=== PATIENT | female | born 1930 | race Caucasian/White ===

== ENCOUNTER 2017-01-07 15:50 | Inpatient (IN) ==
--- NOTE | 2017-01-07 16:41 | Diag Imaging Result Doc PS360 ---
FEMUR MIN 2 VIEWS RIGHT - 01/07/2017 INDICATION: FALL WITH DEFORMITY TECHNIQUE: Four views COMPARISON: None FINDINGS: Bones are intact and normally aligned. Joint spaces and soft tissues are clear. IMPRESSION: Negative exam. Electronically signed by Luis M Tee 01/07/2017 4:38 PM
--- NOTE | 2017-01-07 16:42 | Diag Imaging Result Doc PS360 ---
HUMERUS-RIGHT - 01/07/2017 INDICATION: PAIN S/P FALL TECHNIQUE: Three views COMPARISON: None FINDINGS: Bones are intact and normally aligned. Joint spaces and soft tissues are clear. IMPRESSION: Negative exam. Electronically signed by Luis M Tee 01/07/2017 4:39 PM
[2017-01-07 17:10] LABS: MANUAL DIFF NEEDED? NO
[2017-01-07 17:12] LABS: BASO% 0.3 % (0.0-0.8); EOS# 0.06 X1000 (0.0-0.7); EOS% 0.9 % (0.0-10.0); HEMATOCRIT 37.6 % (37.0-47.0); HEMOGLOBIN 13.2 g/dL (12.0-16.0); IMM GRAN# 0.03 X1000 (0.0-0.04); IMM GRAN% 0.4 % (0.0-0.5); LYMPH# 0.78 X1000 (1.2-3.4); LYMPH% 11.4 % (20.5-51.1); MCH 32.2 PG (27-31); MCHC 35.1 g/dL (33-37); MCV 91.7 FL (81-99); MONO# 0.61 X1000 (0.11-0.59); MONO% 8.9 % (1.7-9.3); MPV 9.4 FL (7.4-10.4); NEUT% 78.1 % (42.2-75.2); PLT 192 X1000 (130-400)
[2017-01-07 17:22] LABS: INR 1.09; PROTIME 11.5 Seconds (9.2-11.7); PTT 34.1 Seconds (22.0-36.0)
[2017-01-07 17:38] LABS: AGAP 12; ALBUMIN 3.8 g/dL (3.5-5.0); ALKALINE PHOSPHATASE 34 U/L (32-104); BUN 16 mg/dL (8-22); CALCIUM 8.8 mg/dL (8.8-10.2); CHLORIDE 96 mmol/L (98-107); CK PROFILE 74 U/L (24-173); COSMO 260; GOT 15 U/L (10-30); GPT 10 U/L (10-36); MAGNESIUM 1.9 mg/dL (1.5-2.7); SODIUM 129 mmol/L (136-145); TCO2 21 mmol/L (25-35); TOTAL BILIRUBIN 0.77 mg/dL (0.20-1.00); TOTAL PROTEIN 6.5 g/dL (6.3-8.3)
--- NOTE | 2017-01-07 17:45 | PROVIDER DOCUMENTATION ---
This chart was entered by Audelia Martinez Scribe, acting as scribe for Phyllis Blackmon MD. HPI-Musculoskeletal Pain/Inj - GENERAL Source: patient - HX OF PRESENT ILLNESS-MUSKULOSKELTAL Severity in ED: moderate Onset/Duration: abrupt, just prior to arrival Timing: still present Modifying Factors: worse with: palpation Any recent injury?: Yes (Fall, R leg visible abnormality) Locality of Occurance: Home - FALL INJURY Location of Pain/Injury: reports: lower extremity (R femur) Reason for Fall: reports: slipped (Pt was pulling trash can back to house while wearing 2-inch heels.) Symptoms prior to fall:: reports: none Loss of Consciousness: no loss of consciousness Injury Associated Symptoms: reports: unable to bear weight, trouble walking - LOWER EXTREMITY PAIN/INJURY Lower Extremities Pain: leg: right (Pain and hematoma, anterior aspect of upper leg) - UPPER EXTREMITY PAIN/INJURY Extremities Pain Location: forearm: right (superficial abrasions), wrist: right (superficial abrasions), hand: right (superficial abrasions) Context / Method of Injury: reports: fell Associated Symptoms: reports: denies symptoms <Phyllis Blackmon - Last Filed: 01/07/17 17:55> - GENERAL Source: patient <IbrahimaFacundo - Last Filed: 01/07/17 19:59> - GENERAL Chief Complaint: Fall Stated Complaint: FALL DEFORMITY TO RIGHT FEMUR Time Seen by Provider: 01/07/17 16:16 - HX OF PRESENT ILLNESS-MUSKULOSKELTAL Nature of Presenting Problem: 86 yo WF is brought to ED by EMS after falling while trying to get her trash can back to her house. Pt's cc is R leg pain, and she presents with a visible deformity. Pt reports that she lives alone. Pt denies any other symptoms. Pt is currently on Plavix. Upon arrival to ED, pt is a&o x 3 and in no apparent distress. (Audelia Martinez) 86 yo WF is brought to ED by EMS after falling while trying to get her trash can back to her house. Pt's cc is R leg pain, and she presents with a visible deformity. Pt reports that she lives alone. Pt denies any other symptoms. Pt is currently on Plavix. Upon arrival to ED, pt is a&o x 3 and in no apparent distress. (Phyllis Blackmon) Review of Systems - Adult - REVIEW OF SYSTEMS - ADULT Constitutional: reports: no symptoms reported. denies: chills, fever Eyes: reports: no symptoms reported. denies: discharge, decreased vision Ears, Nose, Mouth & Throat: reports: no symptoms reported. denies: hearing loss , loose teeth Cardiovascular: reports: no symptoms reported. denies: chest pain, palpitations Respiratory: reports: no symptoms reported. denies: cough, hemoptysis Gastrointestinal: reports: no symptoms reported. denies: abdominal pain Genitourinary: reports: no symptoms reported. denies: dysuria, flank pain Musculoskeletal: reports: bone pain (R femur), muscle aches (R upper leg) Integumentary: reports: other (bruise anterior aspect R upper leg) Neurological: reports: no symptoms reported. denies: headache/migraines, loss of balance Psychiatric: reports: no symptoms reported. denies: anxiety, depression Endocrine: reports: no symptoms reported. denies: cold intolerance, heat intolerance Hematologic/Lymphatic: reports: no symptoms reported. denies: easy bruising, prolonged bleeding Allergic/Immunologic: reports: no symptoms reported. denies: allergic reactions , eczema All Other Systems: Reviewed and Negative <Phyllis Blackmon - Last Filed: 01/07/17 17:55> - REVIEW OF SYSTEMS - ADULT Constitutional: reports: no symptoms reported All Other Systems: Reviewed and Negative <Facundo Alexandra - Last Filed: 01/07/17 19:59> Past History - Adult - PAST MEDICAL HISTORY-ADULT Review of Records: reports: Old Records Reviewed, Nursing Assessment Review, Medications Reviewed Cardiovascular: reports: arrhythmia, HTN, hyperlipidemia Obstetrical/Gynecological: reports: other (breast ca) Endocrine/Immune: reports: thyroid disorder Other Conditions: reports: other cancer (breast) - PRIOR SURGERIES/PROCEDURES Surgical/Procedure History: reports: appendectomy, cholecystectomy, hysterectomy , tonsillectomy - IMMUNIZATION STATUS Childhood Immunizations: See Nurse Assessment Flu Vaccine: See Nurse Assessment <Phyllis Blackmon - Last Filed: 01/07/17 17:55> - PAST MEDICAL HISTORY-ADULT Review of Records: reports: Old Records Reviewed, Nursing Assessment Review, Medications Reviewed <Facundo Alexandra - Last Filed: 01/07/17 19:59> Physical Exam-Injury Related - Physical Exam-Injury Related Initial Vital Signs Reviewed: Yes General Appearance: appears well, alert, no apparent distress Eyes: PERRL/EOMI, pink conjunctivae Head, Ears, Nose, Mouth & Throat: normocephalic/atraumatic, moist mucous membranes Neck: non-tender, full range of motion, supple Respiratory: chest non-tender, lungs clear, normal breath sounds Cardiovascular: normal peripheral pulses, regular rate, rhythm, no edema Abdominal Exam: normal bowel sounds, non tender, soft Back Exam: normal inspection Extremity: deformity (R upper leg), tenderness (R upper leg). negative: pulse deficit (distal pulse on R leg is fine) Integumentary: other (large hematoma, anterior portion of R upper leg) Neurologic: grossly normal, no motor/sensory deficits Psych/Mental Status: normal mood/affect, normal thought content, normal thought process, oriented x 3 - Glascow Coma Score Best Eye Response ([place]): (4) open spontaneously Best Verbal Response ([place]): (5) oriented Best Motor Response ([place]): (6) obeys commands Omar Total: 15 <Phyllis Blackmon X - Last Filed: 01/07/17 17:55> - Physical Exam-Injury Related Initial Vital Signs Reviewed: Yes General Appearance: appears well, alert, no apparent distress <Facundo Alexandra - Last Filed: 01/07/17 19:59> Progress - PLAN OF CARE/RESULTS Result Diagrams: 01/07/17 17:00 01/07/17 17:00 - EKG 1 EKG Interpretation (*Must complete 3 of following elements*): Abnormal Rate: 80 Rhythm: NSR [place]: left QRS: normal PA Interval: normal ST Wave: non-specific ST changes - XRAY 1 XRAY: Right XRAY Study: Humerus Impression: Normal XRAY Interpretation: No acute injury (per Nay, radiology) 2 XRAY: Right XRAY Study: Femur Impression: Normal XRAY Interpretation: No acute injury (per Nay, radiology) - CHANGE OF SHIFT REPORT (ED Provider) Report Given and Care Transferred to:: Dr. Alexandra Time of Transfer: 18:00 Items Pending: Ultrasound Results, Other (Dispo) <Phyllis Blackmon X - Last Filed: 01/07/17 17:55> - PLAN OF CARE/RESULTS Result Diagrams: 01/07/17 17:00 01/07/17 17:00 - ULTRASOUND (By Radiology) 1 US Study: Lower Ext Impression: Abnormal US Results: hematoma, no vascular obstruction, no DVT - CONSULTS/PCP/HOSPITALIST Notification #1 *Consult/PCP/Hospitalist*: Dr. Moreland (superintendent transmission) Time Discussed: 19:45 Reason/Comments: no acute cardiogy intervention at this time,request cxr,abg Consult Disposition: Admit (Discussed elevated troponin. Dr. Dacosta does not recommend any acute cardiology intervention and no blood thinners with concurrent right thigh hematoma) <Facundo Alexandra - Last Filed: 01/07/17 19:59> - PLAN OF CARE/RESULTS Progress/Plan/Lab Results: Vital Signs - 8 hr 01/07/17 16:05 01/07/17 16:32 01/07/17 17:33 Temperature 97.9 F Pulse Rate 82 83 78 Respiratory Rate 18 Blood Pressure 133/78 133/78 133/78 O2 Sat by Pulse Oximetry 98 96 94 L 01/07/17 18:50 01/07/17 19:46 Temperature Pulse Rate 80 122 H Respiratory Rate 16 Blood Pressure 133/78 133/78 O2 Sat by Pulse Oximetry 95 95 Laboratory Results - last 24 hr 01/07/17 01/07/17 01/07/17 17:00 17:00 17:00 WBC 6.82 RBC 4.10 L Hgb 13.2 Hct 37.6 MCV 91.7 MCH 32.2 H MCHC 35.1 RDW Std Deviation 13.0 Plt Count 192 MPV 9.4 Immature Gran % (Auto) 0.4 Neut % (Auto) 78.1 H Lymph % (Auto) 11.4 L [place] % (Auto) 8.9 Eos % (Auto) 0.9 Baso % (Auto) 0.3 Immature Gran # (Auto) 0.03 Neut # (Auto) 5.32 Lymph # (Auto) 0.78 L [place] # (Auto) 0.61 H Eos # (Auto) 0.06 Baso # (Auto) 0.02 PT INR PTT (Actin FS) Sodium 129 L Potassium 4.0 Chloride 96 L Carbon Dioxide 21 L Anion Gap 12 BUN 16 Creatinine 0.5 Estimated GFR/1.73 m2 > 60 BUN/Creatinine Ratio 32 Glucose 97 Calculated Osmolality 260 Calcium 8.8 Magnesium 1.9 Total Bilirubin 0.77 AST 15 ALT 10 Alkaline Phosphatase 34 Creatine Kinase 74 Troponin T Ytx-S-Ljcbthggzaw Pept 259 Total Protein 6.5 Albumin 3.8 Globulin 2.7 Albumin/Globulin Ratio 1.4 01/07/17 01/07/17 01/07/17 17:00 17:00 19:00 WBC RBC Hgb Hct MCV MCH MCHC RDW Std Deviation Plt Count MPV Immature Gran % (Auto) Neut % (Auto) Lymph % (Auto) [place] % (Auto) Eos % (Auto) Baso % (Auto) Immature Gran # (Auto) Neut # (Auto) Lymph # (Auto) [place] # (Auto) Eos # (Auto) Baso # (Auto) PT 11.5 INR 1.09 PTT (Actin FS) 34.1 Sodium Potassium Chloride Carbon Dioxide Anion Gap BUN Creatinine Estimated GFR/1.73 m2 BUN/Creatinine Ratio Glucose Calculated Osmolality Calcium Magnesium Total Bilirubin AST ALT Alkaline Phosphatase Creatine Kinase Troponin T 0.330 H* 0.349 H* Byp-S-Murefxspkrn Pept Total Protein Albumin Globulin Albumin/Globulin Ratio Orders Category Date Time Status Cardiac Monitoring DIRECTED Care 01/07/17 16:41 Active Saline Loc NOW Care 01/07/17 16:41 Active CHEST-1 VIEW [RAD] Stat Exams 01/07/17 19:49 Ordered FEMUR MIN 2 VIEWS RIGHT [RAD] Stat Exams 01/07/17 16:11 Completed HUMERUS-RIGHT [RAD] Stat Exams 01/07/17 16:12 Completed ABG [RESP] Routine Lab 01/07/17 19:50 Ordered CBC WITH ELECTRONIC DIFF [HEME] Stat Lab 01/07/17 17:00 Completed CK PROFILE [SP CHEM] Stat Lab 01/07/17 17:00 Completed COMPREHENSIVE METABOLIC PANEL [CHEM] Stat Lab 01/07/17 17:00 Completed MAGNESIUM [CHEM] Stat Lab 01/07/17 17:00 Completed PRO B-NATRIURETIC PEPTIDE Stat Lab 01/07/17 17:00 Completed PROTIME WITH INR [COAG] Stat Lab 01/07/17 17:00 Completed PTT [COAG] Stat Lab 01/07/17 17:00 Completed TROPONIN T Stat Lab 01/07/17 17:00 Completed TROPONIN T Stat Lab 01/07/17 19:00 Completed EKG [EKG] Stat Ther 01/07/17 16:41 Ordered Venous U/S Right Leg Routine Ther 01/07/17 [address]iscuss[address] case with Dr[address] Smith,hospitalist, concerning elevated troponin. patient reports recurrent chest discomfort. currently without chest pain. Dr. Smith requests repeating troponin. Reviewed EKG which shows no acute findings. (Facundo Alexandra) Departure <Phyllis Blackmon - Last Filed: 01/07/17 17:55> - Departure Time of Disposition Decision: 19:55 Certified Medical Emergency: Emergent - Critical Care Note This patient required my direct & personal management of CC.: No <Facundo Alexandra - Last Filed: 01/07/17 19:59> - Departure DIAGNOSIS: Elevated troponin I level Thigh hematoma Qualifiers: Encounter type: initial encounter Laterality: right Qualified Code(s): S70.11XA - Contusion of right thigh, initial encounter Disposition: ADMITTED INPATIENT 09 Condition: Stable Referrals and Follow-Ups: None,PCP [Primary Care Provider] - Attestation - Physician/ YONATAN Attestation Patient care was provided by Advanced Practice Provider:: No <Phyllis Blackmon - Last Filed: 01/07/17 17:55> This chart was documented by the indicated scribe, (Audelia Martinez, Scribe) and accurately reflects the services I performed and decisions made by , Phyllis Blackmon MD, as attested by the provider's signature.
[2017-01-07 20:11] LABS: ALLEN TEST YES; BE -1.2 mmoll (-3.0-3.0); BLOOD TYPE ARTERIAL; DRAW SITE R RADIAL; MODALITY ROOM AIR; O2(CT) 16.6 mL/dL (15.0-23.0); PCO2(98.6) 34 mmHg (35-45); PO2(98.6) 69 mmHg (60-100); SAMPLE BLOOD; SAO2 95.9 % (95.0-100.0); THB 12.7 g/dL (11.5-17.4); pH(98.6) 7.43 (7.35-7.45)
[2017-01-07] MEDS ORDERED: RANEXA PO SCH (21:37)
[2017-01-07] MEDS ORDERED: ZOFRAN IV PRN (21:51)
[2017-01-07] MEDS ORDERED: MORPHINE IV PRN (21:51)
[2017-01-07] MEDS ORDERED: TYLENOL PO PRN (22:24)
[2017-01-07] MEDS ORDERED: ZANAFLEX PO PRN (22:24)
[2017-01-07] MEDS ORDERED: SALINE LOCK IV FLUID XX ONE (22:24)
[2017-01-07] MEDS ORDERED: NS 1,000 ML IV SCH (22:44)
--- NOTE | 2017-01-08 01:49 | HISTORY AND PHYSICAL ---
PRIMARY CARE PROVIDER: Patient at this time does not have a primary care provider. Her previous primary care provider was Dr. Shore. She is currently trying to get established with Dr. Sims. FLIGHT NURSE: Dr. Payne. DATE AND TIME OF HISTORY AND PHYSICAL: 01/07/2017 at 21:30. CHIEF COMPLAINT: Fall and chest pain. HISTORY OF PRESENT ILLNESS: Ms Dai is an 86-year-old elderly female who presented to the ER today with complaints of right arm pain, right lower extremity pain and chest pain after a fall at home from standing. The patient states that today around approximately at 2:00 to 3:00 p.m. that she was walking outside and was pulling her large empty garbage can. The patient states somehow the garbage can began to turn over and the garbage can itself as well as the lid both hit her right lateral thigh. This also caused the patient to fall. The patient denies hitting her head. She denies any loss of consciousness though was not able to ambulate after the fall due to right upper thigh pain and swelling. Upon evaluation in the ER, the patient did have a right humerus x-ray performed which showed no injury. She also had a right femur x-ray performed which showed no injury, though due to the patient's large hematoma which has developed on her right upper lateral thigh as well as her having difficulty ambulating with this injury we will admit her for further evaluation and close monitoring of this. Also, the patient complains of some chest pain which is substernal and epigastric in location. She describes it as pressure type pain that is nonradiating. She did report some associated symptoms of shortness of breath after her arrival to the ER with this chest pressure though no other associated symptoms. She denies any nausea, vomiting or indigestion. She denies any dizziness or lightheadedness. Patient states this pain has been intermittent for the past several days. She reports that it comes on when she is up moving around such as doing chores around the house and when she goes and sits down the chest pressure is relieved. She was found in the ER to have elevated troponin with an initial troponin of 0.330 and a 2 hour repeat of 0.349. EKG shows normal sinus rhythm with a left axis deviation at a rate of 80 with a QTc of 447. The patient does have a history of coronary artery disease and has previously had a left heart catheterization in April 2013 which did show 30-40% small vessel disease in the distal LAD which is being treated with medications at this time. Given her history, we will also further evaluate her chest pain and elevated troponins and we will consult Cardiology as well. REVIEW OF SYSTEMS: A 12 point review of systems was conducted with the patient and all were negative except for pertinent positives mentioned in above HPI. PAST MEDICAL HISTORY: 1. Hypertension. 2. Hyperlipidemia. 3. Coronary artery disease. 4. Unknown arrhythmia. 5. Hypothyroidism. 6. Gastroesophageal reflux disease. 7. Esophageal strictures. 8. Breast cancer. PAST SURGICAL HISTORY: 1. Appendectomy. 2. Cholecystectomy. 3. Hysterectomy. 4. Tonsillectomy. 5. Esophageal dilations. 6. Left breast lumpectomy. 7. Left heart catheterization in 2012. SOCIAL HISTORY: The patient is a retired entry level staff accountant. She lives alone at this time though states that her son lives in [place] and comes to visit her once a month. She denies any previous alcohol, tobacco or illicit drug use. PAST FAMILY MEDICAL HISTORY: Positive for coronary artery disease, hypertension , and breast cancer in her sister. ALLERGIES: Patient reports an allergy to iodine stating it causes anaphylaxis. HOME MEDICATIONS: 1. Norvasc 2.5 mg p.o. daily. 2. Plavix 75 mg p.o. at bedtime. 3. Imdur 30 mg p.o. daily. 4. Synthroid 25 mcg p.o. daily. 5. Cozaar 100 mg p.o. daily. 6. Toprol-XL 25 mg p.o. daily. 7. Ranexa 500 mg p.o. at bedtime. DIAGNOSTIC DATA/LABORATORY RESULTS: White blood cell count 6.82, hemoglobin 13.2, hematocrit 37.6, platelet count 192,000. PT 11.5, INR 1.09, PTT 30.1. Sodium 129, potassium 4, chloride 96, bicarb 21, BUN 16, creatinine 0.5, glucose 97, calcium 8.8, magnesium 1.9. Liver function tests are within normal limits. CK 74, troponin 0.330 with a 2 hour repeat at 1900 of 0.349. ProBNP was 259. Arterial blood gases were obtained on room air, pH 7.43, pCO2 34, PO2 69, HC03 was 23.9 with a base excess of -1.2, and O2 saturation is 95.9. Chest x-ray shows no acute disease though we are awaiting official radiology overread. Right humerus was negative for any acute abnormality per Radiology. Right femur was negative for any acute abnormality per Radiology. EKG showed a normal sinus rhythm with a left axis deviation at a rate of 80 with a QTc of 447. PHYSICAL EXAMINATION: VITAL SIGNS: Temperature 97.6 degrees, heart rate 69, respirations 18, blood pressure 126/78. Oxygen saturation is 100% room air. GENERAL: Ms. Dai is a pleasant, elderly 86-year-old female who is resting in the inpatient bed. She was in no acute distress. She was awake, alert and able to answer all questions appropriately. HEENT: Head is atraumatic, normocephalic. Pupils are equal, round, reactive to light, are 3 mm bilaterally and brisk. Subconjunctivae were pink. Oral mucosa was moist. Oropharynx is clear. NECK: Supple. Trachea midline. No carotid bruits noted upon auscultation bilaterally. CARDIOVASCULAR: Patient has normal S1, S2. No murmurs, gallops, or rubs appreciated with a regular rate and rhythm. PULMONARY: Patient has symmetrical chest expansion bilaterally. Lung sounds are clear to auscultation bilateral full seaman. ABDOMEN: Soft, nondistended. The patient did report some slight tenderness upon palpation in the epigastric area though no rebound tenderness noted. Bowel sounds were present all 4 quadrants, were normoactive. EXTREMITIES: The patient does have a large hematoma noted to her right upper lateral thigh. She also has a large area of ecchymosis noted to her right upper arm as well. Pulse , motor and sensory are intact in all extremities. Pedal pulses are 3+ bilaterally. Radial pulses are 3+ bilaterally. Capillary refill is less than 3. INTEGUMENTARY: Patient does have an abrasion noted to her right forearm as well as the previously mentioned area of ecchymosis in the above extremity exam. Other than these findings, skin is pink, warm, dry, and intact. NEUROLOGICAL: Patient is alert and oriented to person, place, time, and situation. Cranial nerves 2-12 are grossly intact. ASSESSMENT AND PLAN: 1. Chest pain. As previously mentioned, the patient has reported some chest pressure that is substernal and in the epigastric area. She did have an elevated troponin as well. We will continue to monitor her cardiovascular status closely. We have ordered a series of cardiac enzymes and a repeat EKG in the morning. We will do an echocardiogram and have ordered a consult with Dr. Payne with cardiology and we will await their evaluation and further recommendations. 2. Right lower extremity hematoma. As previously mentioned, the patient does have a large hematoma noted on her right upper lateral thigh. We will monitor this closely. We have ordered for the patient to have neurovascular checks as well as measurements of her thigh circumference in this area every 4 hours. We will do a venous Doppler of her right lower extremity in the morning. We have also placed a physical therapy evaluation as well. 3. Coronary artery disease. As previously mentioned, the patient did have previous findings of some small-vessel disease within the distal LAD on a previous cardiac catheterization performed in April of 2013. At this time this is being treated with medications. The patient currently takes Plavix and 81 mg aspirin as well as Ranexa daily. We have continued her Ranexa though given the patient's current injury and hematoma we have held her aspirin and Plavix at this time. We will await further evaluation recommendations from Dr. Payne from cardiology. 4. Hypertension. We will continue her antihypertensive. 5. Hyperlipidemia. It does look that the patient did previously take atorvastatin though she is unsure whether or not she still takes this medicine. We have placed an order for a lipid profile in the morning and we will try to obtain an accurate medication list from her pharmacy in the morning and continue to follow. 6. Hypothyroidism. We will continue the patient's Synthroid. The patient will be placed on a medical floor with telemetry. She will have vital signs q.4 hours. She will be on a heart healthy diet though NPO after midnight for cardiology consult and a lipid profile. I did discuss with the patient her wishes for her code status and she does want to be placed a full code. She also reported that she does not have a living will or power of patent prosecution attorney at this time. We have held off on placing DVT prophylaxis of SCDs, TEDs or anticoagulants at this time due to the patient's large right upper thigh hematoma. GI prophylaxis is provided with Prilosec 20 mg p.o. daily. Further orders and recommendations pending hospital course, diagnostic studies and physician evaluation. Dictated by GRACIELA Elliott for Ever Murdock MD cc: Ever Murdock MD pt examined, agree with above APENOT MTDD
[2017-01-08 03:50] LABS: MANUAL DIFF NEEDED? NO
[2017-01-08 03:55] LABS: BASO% 0.1 % (0.0-0.8); HEMATOCRIT 33.2 % (37.0-47.0); HEMOGLOBIN 11.3 g/dL (12.0-16.0); IMM GRAN# 0.04 X1000 (0.0-0.04); IMM GRAN% 0.4 % (0.0-0.5); LYMPH# 0.82 X1000 (1.2-3.4); MCH 31.7 PG (27-31); MCV 93.3 FL (81-99); MONO# 0.62 X1000 (0.11-0.59); MONO% 6.8 % (1.7-9.3); MPV 9.9 FL (7.4-10.4); NEUT% 83.7 % (42.2-75.2); PLT 175 X1000 (130-400); RBC 3.56 XMIL (4.2-5.4)
[2017-01-08 04:18] LABS: AGAP 13; BUN 19 mg/dL (8-22); CALCIUM 8.4 mg/dL (8.8-10.2); CHLORIDE 101 mmol/L (98-107); COSMO 275; MAGNESIUM 1.9 mg/dL (1.5-2.7); POTASSIUM 4.2 mmol/L (3.5-5.1); SODIUM 136 mmol/L (136-145); TCO2 22 mmol/L (25-35)
[2017-01-08] MEDS: PRILOSEC PO SCH (06:31)
--- NOTE | 2017-01-08 06:34 | EKG Report ---
Test Performed on : 01/08/2017 06:14:03 AM Test Reason : Chest Pain Blood Pressure : / mmHG Vent. Rate : 053 BPM Atrial Rate : 053 BPM P-R Int : 158 ms QRS Dur : 082 ms QT Int : 500 ms P-R-T Axes : 018 -40 041 degrees QTc Int : 469 ms Sinus bradycardia. 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 rate has decreased BY 27 BPM Criteria for Anterior infarct are no longer present Criteria for Anterolateral infarct are no longer present Confirmed by Ruben RYAN, Yg Berg ([id number]) on 01/08/2017 3:30:22 PM
--- NOTE | 2017-01-08 08:02 | Diag Imaging Result Doc PS360 ---
CHEST-1 VIEW - 01/07/2017 INDICATION: elevated troponin TECHNIQUE: COMPARISON: 04/09/2016 FINDINGS: The lungs are normally expanded and clear. Heart size and mediastinal contours are normal. No pneumothorax or pleural effusion. IMPRESSION: Negative exam. Electronically signed by Luis M Tee 01/08/2017 7:59 AM
[2017-01-08] MEDS: SYNTHROID PO SCH (08:41)
[2017-01-08] MEDS: IMDUR PO SCH (08:41)
[2017-01-08] MEDS ORDERED: TOPROL XL PO SCH ×2 (09:00→21:00)
[2017-01-08] MEDS ORDERED: COZAAR PO SCH (09:00)
[2017-01-08] MEDS ORDERED: NORVASC PO SCH (09:00)
--- NOTE | 2017-01-08 09:05 | PROGRESS NOTE ---
DATE: 01/08/2017 SUBJECTIVE: Ms. Dai states she is feeling better. Breathing comfortably. She remains afebrile. She was just admitted this morning. She came in on the . The patient does not have any primary care provider. Her previous doctor was Dr. Shore. She is trying to get established with Dr. Sims. Cardiologists is Dr. Payne. She had a fall and had some chest pain. This 86-year-old, presented to the ER with complaints of right arm pain, right lower extremity pain, chest pain after a fall at home from standing. Patient states that today around approximately 2:00 to 3:00 p.m., she was walking outside pulling a large empty trash can. The patient states that somehow the garbage can began to turn over and the lid both hit her in the lateral thigh that caused the patient to fall. Denies any hitting of her head. Denies any loss of consciousness. Was not able to ambulate after the fall due to right upper thigh pain and swelling. On evaluation, in the emergency room, the patient did have right humerus x-ray performed which showed no injury. She had a right femur x-ray performed which showed no injury. The patient had a large hematoma. Developed right upper lateral thigh difficulty ambulating with this injury. The patient complained of chest pain which is substernal and described as pressure. No radiation to the jaw or her arm. She has not had any pain at this time. Denies any dizziness or lightheadedness. PAST MEDICAL HISTORY: 1. Hypertension. 2. Hyperlipidemia. 3. Coronary artery disease. 4. Unknown arrhythmia. 5. Hypothyroidism. 6. Gastroesophageal reflux. 7. Esophageal strictures. 8. Breast cancer. SURGERIES: 1. Status post appendectomy. 2. Status post cholecystectomy. 3. Status post hysterectomy. 4. Status post tonsillectomy. 5. Esophageal dilatations. 6. Left breast lumpectomy. 7. Left heart catheterization, 2012. OBJECTIVE: Vital Signs: Exam today, temp 97.7 degrees, pulse 52, respirations 18, blood pressure 81/42. Pupils were equal, round. Lungs: Clear in all lung seaman. Cardiovascular: Regular rhythm and rate without murmur or S3. Abdomen: Soft. Skin: Warm and dry. LABORATORY/DIAGNOSTIC DATA: Review of lab from yesterday, white count 9160, hematocrit 33, platelet count 175,000, troponin was elevated at 0.349 and then came down to 0.200. CPK was negative. Blood gases unremarkable. Chest x-ray negative exam. Femur x-ray negative exam. Humerus x-ray negative exam. ASSESSMENT AND PLAN: 1. Fall. Fortunately, no fracture. Hematoma on thigh. 2. Chest pain. There was initial elevation of troponin I am not sure if that is specific. EKG unremarkable. Chest pain described as pressure. Cardiology following. 3. History of coronary artery disease. Previous finding of small-vessel disease in distal left anterior descending. Had previous cardiac catheterization performed April 2013 at this time being treated with medications. Patient is on Plavix, aspirin 81 mg a day and Ranexa daily. 4. Hypertension. 5. Hyperlipidemia. 6. Hypothyroidism. 7. Review of orders. I do not see any change at this time. This patient is on amlodipine 2.5 mg a day, isosorbide mononitrate 30 mg a day, Synthroid 25 mcg daily, Cozaar 100 mg daily, Toprol-XL 25 mg a day, normal saline at 75 mL an hour, Prilosec 20 mg daily, Ranexa 500 mg daily, Zanaflex 4 mg q.8 hours. cc: Suhas Tobin MD
[2017-01-08] MEDS ORDERED: RANEXA PO SCH (10:22)
--- NOTE | 2017-01-08 11:10 | CONSULTATION ---
DATE OF CONSULTATION: 01/08/2017 REASON FOR CONSULTATION: Cardiology was consulted for non-Q-wave myocardial infarction. HISTORY OF PRESENT ILLNESS: Ms. Dai is an 86-year-old lady who presented to the emergency room with right arm and right lower extremity pain. She had fallen while pulling a garbage can. Incidentally, she also had chest discomfort and the fall was not proceeded with chest pain, palpitations. There was no syncope. From a cardiac standpoint, she has known small-vessel coronary artery disease. However, for the last 1 month, she has been having exertional component of chest pain very frequently, at least 2-3 times a week, which she describes as pressure-like sensation. Symptoms are associated with some shortness of breath. There is no orthopnea, paroxysmal nocturnal dyspnea. There is no associated diaphoresis with this chest discomfort. REVIEW OF SYSTEMS: A 14-point review of system was done. GI System: There is no history of nausea, vomiting, diarrhea. There is no history of melena. Central Nervous System: No focal weakness to suggest a CVA, TIA. System: Is no dysuria or hematuria. Respiratory System: There is no history of cough, expectoration, hemoptysis. There is no history of fevers or chills. PAST MEDICAL HISTORY: 1. Coronary artery disease. Last cardiac catheterization in 2012 revealed left main arterial luminal irregularities. Left anterior descending artery 20% to 30%, proximal mid 30-40% disease. Distal small vessels circumflex normal without any significant disease. RCA was a large dominant vessel which was normal. Patient has diffuse small-vessel disease in the left anterior descending artery territory. 2. Hypertension 3. Hyperlipidemia 4. Hypothyroidism 5. History of breast cancer status post lumpectomy. CURRENT MEDICATIONS: 1. Aspirin. 2. Levothyroxine. 3. Cozaar 100. 4. Amlodipine 2.5. 5. Omeprazole. 6. Ranexa 500 b.i.d. ALLERGIES: She is allergic to iodine. She does not smoke. Does not drink. PHYSICAL EXAMINATION: Vital Signs: Blood pressure was 100/61. Cardiovascular System: Normal jugular venous pressure. There no thyromegaly. No carotid bruit. First and second heart sounds were heard. There is faint systolic murmur. Respiratory System: Normal air entry. There is no crepitations or rhonchi. Abdomen: Soft, nontender. There was no guarding or rigidity. Bowel sounds were heard. Extremities: Examination of extremities revealed tenderness at site of fall. LABORATORY EXAMINATION: Revealed the patient had abnormal troponin at 0.330, 0.349 and 0.20. Sodium 136, potassium 4.2, BUN 19, creatinine 0.6. ASSESSMENT AND PLAN: Ms. Briana Dai is an 86-year-old lady who has history of small- vessel coronary artery disease, hypertension, hypothyroidism, who fell. Incidentally, she has subsequently developed chest pain. She has been having exertional anginal symptoms. I had a detailed discussion with her and her son regarding invasive coronary angiography. Patient would like to be treated medically and not undergo any invasive procedures. PLAN: 1. We will get an echocardiogram to assess cardiac and valvular function. 2. I have made the following changes to her medications: We will increase her Lipitor to 40 mg a day, add Plavix 75 mg to her medical regimen. 3. She had low blood pressure this morning subsequently with normalization of her blood pressure. We will decrease the Cozaar to 50 mg a day. Discontinue her amlodipine and increase her beta- blockers to 25 mg twice daily. She also is on Imdur. 4. For lipid lowering agents, we will increase her Lipitor to 40 mg a day. 5. She is on Ranexa 500 b.i.d. We will increase the Ranexa to 1000 mg b.i.d. Thank you for the consult. We will follow hospital course. cc: Kan Elaine MD
[2017-01-08] MEDS: PLAVIX PO SCH (12:00)
[2017-01-08] MEDS: ASPIRIN PO SCH (12:00)
--- NOTE | 2017-01-08 17:55 | ECHO REPORT ---
ORDER DATE: 01/08/2017 ECHOCARDIOGRAM: MEASUREMENTS: Left atrium 3.1, aortic root 3.4. SUMMARY: 1. Technically difficult study due to limited acoustic window quality. 2. Aortic valve is sclerotic but opens adequately on 2-dimensional images with a peak gradient of 15 mmHg. There is mild aortic regurgitation. Mitral, tricuspid, and pulmonic valves are without structural abnormality with mild to moderate mitral regurgitation and [id number]-[id number] tricuspid regurgitation. The estimated systolic PA pressure by Doppler is approximately 45-50 mmHg. Aortic root is normal size. 3. Normal left ventricular dimensions suggested. Estimated left ventricular ejection fraction appears to be at least 55%. Regional wall motion analysis is difficult given limitations of the study. There appears to be severe hypokinesis to akinesis of the apical septum and very apex left ventricle. Left atrium, right atrium, right ventricle normal size with normal right ventricular systolic function. 4. No pericardial effusion. 5. Appearance of inferior vena cava suggests normal central venous pressure. CONCLUSIONS: 1. Technically difficult study. 2. Aortic valve sclerosis without stenosis with mild aortic regurgitation. 3. Mild to moderate mitral regurgitation. 4. Mild tricuspid regurgitation and mild pulmonic insufficiency with estimated systolic PA pressure 45-50 mmHg. 5. Estimated left ventricular ejection fraction at least 55%. Severe hypokinesis to akinesis of the apical septum and very apex left ventricle suggested. cc: Erick Pablo MD
[2017-01-08] MEDS: TOPROL XL PO SCH (20:24)
[2017-01-09] MEDS: PRILOSEC PO SCH (06:00)
[2017-01-09 06:21] LABS: AGAP 12; BUN 17 mg/dL (8-22); CALCIUM 8.4 mg/dL (8.8-10.2); CHLORIDE 103 mmol/L (98-107); COSMO 275; POTASSIUM 4.4 mmol/L (3.5-5.1); SODIUM 137 mmol/L (136-145); TCO2 22 mmol/L (25-35)
[2017-01-09] MEDS: ASPIRIN PO SCH (08:25)
[2017-01-09] MEDS: IMDUR PO SCH (08:26)
[2017-01-09] MEDS: LIPITOR PO SCH (08:26)
[2017-01-09] MEDS: COZAAR PO SCH (08:26)
[2017-01-09] MEDS: SYNTHROID PO SCH (08:27)
[2017-01-09] MEDS: PLAVIX PO SCH (08:27)
[2017-01-09] MEDS: TOPROL XL PO SCH ×2 (08:28→20:40)
[2017-01-09] MEDS: NS 1,000 ML IV SCH (11:25)
--- NOTE | 2017-01-09 13:01 | PROGRESS NOTE ---
DATE: 01/09/2017 SUBJECTIVE: She is not having any chest discomfort. She is tolerating oral intake presently. PHYSICAL EXAMINATION: Vital Signs: Afebrile. Heart rate 52. Blood pressure 107/55. General: In no acute distress. Cardiovascular: She sounds to be in a regular rate and rhythm. She has no obvious murmurs. No S3. She has no lower extremity edema. Chest: Examination is clear bilaterally. She has no increased work of breathing. Abdomen: Soft and nontender. PERTINENT DATA: Sodium 137, potassium 4.4, BUN 17, creatinine 0.7. LDL is 55 with an HDL of 40. ASSESSMENT: 1. Rnd-[id number] myocardial infarction. 2. Multiple hematomas/ecchymoses secondary to trauma. PLAN: She has had significant medication adjustments per Dr. Elaine, with a decrease of her ARB and adjustments in her antianginals. I agree with the addition of Plavix to her regimen, as well. The patient has opted for medical therapy at this time. We will try to continue with that plan. I will make an adjustment in her Ranexa from 1000 mg at bedtime to 500 b.i.d. She was only on 500 mg daily previously, so we will try that escalated dose and consider an escalation to 1000 mg twice a day if possible. cc: Daniel Payne MD
--- NOTE | 2017-01-09 15:07 | PROGRESS NOTE ---
DATE: 01/09/2017 SUBJECTIVE: Today Ms. Dai refers to be doing a lot better. Denies any chest pain but does have some epigastric discomfort-like pressure. According to Ms. Dai she does have a chronic tendency to choke especially on solid food. OBJECTIVELY: Vitals: Blood pressure is 93/55, pulse is 53, respiration is 18 , temperature 97.6 degrees. General: Ms. Dai 86-year-old very sweet female. She was in bed. Not seemingly distress. HEENT: Mucosa is slightly dry. Anicteric. Acyanotic. Neck: Supple. Chest: Good air entry bilateral. No crepitations. No rhonchi. Cardiovascular : Regular rate and rhythm. Abdomen: Soft, mildly tender in the epigastrium. Neuro: Patient is alert and oriented x4. Extremities: No pedal edema. There is swelling in the mid right lateral thigh consistent with a history of trauma. There is also some bruising over the right arm. LABORATORY DATA: No CBC. Sodium is 137, potassium 4.4, chloride 103, bicarb is 22, calcium is 8.4. Troponins have been coming down. ASSESSMENT: 1. Fall with left right high hematoma. Patient will continue to be applying warm compresses to the hematoma to improve reabsorption. 2. Non-ST segment elevation myocardial infarction. Patient's troponins continue to have downward trend. Patient has had evaluation by Cardiology. So far an echocardiogram did show ejection fraction of about 55 and severe hypokinesis to akinesis of the apical and apex of left ventricle consistent with coronary artery disease. The patient's medications have been optimized by Cardiology. 3. Borderline hypotension and bradycardia. I think this is probably related to the current medications. I will keep a very close eye on the vitals today. 4. Mild dehydration. We will start the patient on gentle IV fluids to also help with the vitals. 5. 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 I think patient probably does have some underlying gastrointestinal pathology. She is able to tolerate very well liquid diet. She will need to have at least barium swallow under fluoroscopy to see if there is any abnormality that needs to be addressed. If this is not done in the hospital this can be done on outpatient basis. 6. Epigastric discomfort with pressure. This could be due to the non-ST segment elevation myocardial infarction. However there could also be an underlying gastroesophageal reflux disease which the patient is getting a proton pump inhibitor. Will add Carafate to that. 7. Congestive heart failure. Ejection fraction is 55% with wall motion abnormality likely due to coronary artery disease. cc: MD NIEVES GrandaD
[2017-01-09] MEDS: RANEXA PO SCH (20:40)
[2017-01-10] MEDS: NS 1,000 ML IV SCH ×2 (01:17→15:47)
[2017-01-10] MEDS: PRILOSEC PO SCH (06:45)
[2017-01-10] MEDS: LIPITOR PO SCH (08:17)
[2017-01-10] MEDS: COZAAR PO SCH (08:17)
[2017-01-10] MEDS: TOPROL XL PO SCH (08:17)
[2017-01-10] MEDS: IMDUR PO SCH (08:17)
[2017-01-10] MEDS: SYNTHROID PO SCH (08:17)
[2017-01-10] MEDS: CARAFATE PO SCH ×4 (08:17→21:03)
[2017-01-10] MEDS: RANEXA PO SCH ×2 (08:17→21:03)
[2017-01-10] MEDS: PLAVIX PO SCH (08:17)
[2017-01-10] MEDS: ASPIRIN PO SCH (08:18)
[2017-01-10] MEDS ORDERED: COZAAR PO SCH (08:55)
[2017-01-10] MEDS ORDERED: TOPROL XL PO SCH ×2 (09:00→13:28)
[2017-01-10 11:15] LABS: MANUAL DIFF NEEDED? NO
[2017-01-10 11:25] LABS: BASO% 0.5 % (0.0-0.8); EOS# 0.11 X1000 (0.0-0.7); EOS% 1.7 % (0.0-10.0); HEMATOCRIT 28.9 % (37.0-47.0); HEMOGLOBIN 9.9 g/dL (12.0-16.0); IMM GRAN# 0.06 X1000 (0.0-0.04); IMM GRAN% 0.9 % (0.0-0.5); LYMPH# 0.94 X1000 (1.2-3.4); LYMPH% 14.3 % (20.5-51.1); MCH 32.4 PG (27-31); MCHC 34.3 g/dL (33-37); MCV 94.4 FL (81-99); MONO# 0.67 X1000 (0.11-0.59); MONO% 10.2 % (1.7-9.3); MPV 9.9 FL (7.4-10.4); NEUT% 72.4 % (42.2-75.2); PLT 158 X1000 (130-400); RBC 3.06 XMIL (4.2-5.4)
[2017-01-10 11:53] LABS: AGAP 12; BUN 11 mg/dL (8-22); CALCIUM 8.4 mg/dL (8.8-10.2); CHLORIDE 109 mmol/L (98-107); COSMO 284; POTASSIUM 4.8 mmol/L (3.5-5.1); SODIUM 143 mmol/L (136-145); TCO2 22 mmol/L (25-35)
[2017-01-10 12:22] LABS: CK INDEX 1.8 (0.0-2.5); CK-MB 5.54 ng/mL (0.0-5.0)
--- NOTE | 2017-01-10 14:06 | PROGRESS NOTE ---
DATE: 01/10/2017 SUBJECTIVE: She had an episode of chest discomfort that occurred this morning with ambulation around the halls. OBJECTIVE: Vital signs: Heart rates have been in the high 40s to low 50s. Blood pressure 103/53. She did have an 89/52 noted at 7:48. General: No acute distress. Cardiovascular: She sounds to be in a regular rate and rhythm. She has no murmurs. She has no S3. She has no lower extremity edema. Chest Exam: Had some mild basilar rales but these improved somewhat with deep inspiration and cough. She had no increased work of breathing. Abdomen: Soft, nontender, nondistended. She has no obvious organomegaly. Skin Exam: Warm and dry throughout without any rashes. PERTINENT DATA: Notably the patient did have a heart catheterization back in 2012. She had severe diffuse small-vessel disease in a less than 2 mm vessel in the distal left anterior descending. Right coronary artery was normal. The LAD otherwise had no significant disease. Her laboratory data today shows a white count 6.6, hematocrit 28.9, platelet count is 158,000. Her sodium is 143, potassium 4.8, BUN 11, creatinine 0.6. Cardiac enzymes normal today. MB 5.54. ASSESSMENT: [id number] myocardial infarction. PLAN: We will continue to try to adjust medications. I stopped her ARB. Her beta-adilia has been decreased to once daily. She is having a lot of issues with her blood pressure in relation to medications and further treatment. This may represent a road block to getting the patient anginal free. She does not have what appears to be a really prime intervention targeted if she has had progression in disease in that distal LAD as it is quite a small vessel. We will continue to try to medically manage. Dr. Elaine will return to follow the patient in the morning. cc: Daniel Payne MD
--- NOTE | 2017-01-10 15:48 | PROGRESS NOTE ---
DATE: 01/10/2017 SUBJECTIVE: Today Ms. Dai refers to be doing a little better. However, early on today whilst doing physical therapy she had an episode of acute onset of chest discomfort. I understand she became pale, was very jittery, and had to be rushed to her bed. When I went to see her she was pretty much stable. Vitals were stable. OBJECTIVE: Vital signs: Blood pressure is 89/52, pulse of 56, respirations 16 , temperature is 98.0 degrees, saturating 100%. General: Ms. Dai is an 86-year-old female. She is in bed. Did not seem to be in any overt distress. HEENT: Mucosa is pink and moist. Anicteric. Acyanotic. Neck: Supple. Chest: Good air entry bilateral. No crepitations. No rhonchi. Cardiovascular: Regular rate and rhythm. Abdomen: Soft. Extremities: No pedal edema. MANUFACTURING DESIGN ENGINEER: Patient is alert and oriented. Musculoskeletal: There is some swelling over the right mid thigh and the right arm. LABORATORY: There was no lab work started today but we have reordered. ASSESSMENT: 1. Fall with right side thigh hematoma, stable. 2. Ayc-GW-[id number] myocardial infarction on presentation. Discussion has been held with the family members by cardiology and per their notes, this will be treated more medically. 3. Borderline hypotensive and bradycardia. We are going to decrease the metoprolol to 12.5 daily and also reduce the losartan to 25 daily. 4. Mild dehydration. Will continue with the IV fluids. 5. 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 I spoke with the son today and according to him the patient has had this problem for a very long time. she knows about that. There have been 2 attempts to stretch her esophagus but that has not being successful so they have recommended her to be taking only a liquid diet, so I do not think there is a need to do any invasive procedures while she is here in the hospital. 6. Epigastric discomfort, likely related to esophageal stenosis with gastritis and gastroesophageal reflux disease. 7. Congestive heart failure. Ejection fraction is 55% with wall-motion abnormality. Likely due to underlying coronary artery disease. cc: Stephan Garcia MD MTDD
--- NOTE | 2017-01-11 05:45 | EKG Report ---
Test Performed on : 01/10/2017 05:40:56 AM Test Reason : nstemi Blood Pressure : / mmHG Vent. Rate : 053 BPM Atrial Rate : 053 BPM P-R Int : 156 ms QRS Dur : 082 ms QT Int : 524 ms P-R-T Axes : 015 -14 006 degrees QTc Int : 491 ms Sinus bradycardia. T wave abnormality, consider anterolateral ischemia Prolonged QT Abnormal ECG When compared with ECG of 09-JAN-2017 06:01, (Unconfirmed) QT has shortened Confirmed by Ruben RYAN, Yg Berg ([id number]) on 01/11/2017 10:55:47 AM
--- NOTE | 2017-01-11 05:49 | EKG Report ---
Test Performed on : 01/09/2017 06:01:29 AM Test Reason : nstemi Blood Pressure : / mmHG Vent. Rate : 049 BPM Atrial Rate : 049 BPM P-R Int : 160 ms QRS Dur : 086 ms QT Int : 598 ms P-R-T Axes : 032 -21 -30 degrees QTc Int : 540 ms Sinus bradycardia. T wave abnormality, consider anterolateral ischemia Prolonged QT Abnormal ECG When compared with ECG of 08-JAN-2017 06:14, Criteria for Inferior infarct are no longer present Inverted T waves have replaced nonspecific T wave abnormality in Inferior leads T wave inversion now evident in Anterolateral leads QT has lengthened Confirmed by Ruben RYAN, Yg Berg ([id number]) on 01/11/2017 10:55:03 AM
--- NOTE | 2017-01-11 05:50 | EKG Report ---
Test Performed on : 01/10/2017 10:14:17 AM Test Reason : chest pain Blood Pressure : / mmHG Vent. Rate : 051 BPM Atrial Rate : 051 BPM P-R Int : 136 ms QRS Dur : 082 ms QT Int : 528 ms P-R-T Axes : -14 -09 039 degrees QTc Int : 486 ms Sinus bradycardia. T wave abnormality, consider anterior ischemia Abnormal ECG When compared with ECG of 10-JAN-2017 05:40, (Unconfirmed) Nonspecific T wave abnormality has replaced inverted T waves in Lateral leads Confirmed by Ruben RYAN, Yg Berg ([id number]) on 01/11/2017 10:56:14 AM
[2017-01-11] MEDS: PRILOSEC PO SCH (06:06)
[2017-01-11] MEDS: NS 1,000 ML IV SCH (06:08)
--- NOTE | 2017-01-11 07:36 | EKG Report ---
Test Performed on : 01/11/2017 07:04:36 AM Test Reason : nstemi Blood Pressure : / mmHG Vent. Rate : 052 BPM Atrial Rate : 052 BPM P-R Int : 154 ms QRS Dur : 084 ms QT Int : 520 ms P-R-T Axes : 010 -17 -26 degrees QTc Int : 483 ms Sinus bradycardia. T wave abnormality, consider anterior ischemia Prolonged QT Abnormal ECG When compared with ECG of 10-JAN-2017 10:14, (Unconfirmed) No significant change was found Confirmed by Ruben RYAN, Yg Berg ([id number]) on 01/11/2017 10:57:36 AM
[2017-01-11] MEDS: LIPITOR PO SCH (08:36)
[2017-01-11] MEDS: RANEXA PO SCH (08:36)
[2017-01-11] MEDS: IMDUR PO SCH (08:36)
[2017-01-11] MEDS: SYNTHROID PO SCH (08:36)
[2017-01-11] MEDS: CARAFATE PO SCH ×2 (08:37→13:36)
[2017-01-11] MEDS: ASPIRIN PO SCH (08:37)
[2017-01-11] MEDS: PLAVIX PO SCH (08:37)
[2017-01-11 08:58] LABS: MANUAL DIFF NEEDED? NO
[2017-01-11 09:05] LABS: BASO% 0.2 % (0.0-0.8); EOS# 0.14 X1000 (0.0-0.7); EOS% 3.3 % (0.0-10.0); HEMOGLOBIN 9.4 g/dL (12.0-16.0); IMM GRAN# 0.04 X1000 (0.0-0.04); IMM GRAN% 0.9 % (0.0-0.5); LYMPH# 0.77 X1000 (1.2-3.4); MCH 31.9 PG (27-31); MCHC 33.6 g/dL (33-37); MCV 94.9 FL (81-99); MONO# 0.39 X1000 (0.11-0.59); MONO% 9.1 % (1.7-9.3); MPV 9.5 FL (7.4-10.4); NEUT% 68.5 % (42.2-75.2); PLT 170 X1000 (130-400); RBC 2.95 XMIL (4.2-5.4)
[2017-01-11 10:29] VITALS: BP 133/60
--- NOTE | 2017-01-11 11:34 | Diag Imaging Result Doc PS360 ---
BA SWALLOW W/VIDEO SPEECH THER - 01/11/2017 INDICATION: choking on meals TECHNIQUE: Total fluoroscopy time was 42 seconds. 170 images were obtained. 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 This causes severe delay in clearance of the pharynx of liquid and pureed consistency substances. No significant aspiration or penetration. There are some small degenerative osteophytes, but these are not causing any contribution. 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 Electronically signed by Luis M Tee 01/11/2017 11:32 AM
[2017-01-11] MEDS ORDERED: PROTONIX IV SCH (11:45)
[2017-01-11] MEDS ORDERED: SODIUM CHLORIDE 0.9% INJ SCH (11:45)
--- NOTE | 2017-01-11 13:07 | VASCULAR LAB ---
PROCEDURE NAME: Arterial U/S Unilateral Leg - 01/07/2017 RIGHT LOWER EXTREMITY ARTERIAL ULTRASOUND: REFERRING PHYSICIAN: Dr. Blackmon. READING PHYSICIAN: Beau Gant MD. DEALER SALES MANAGER: Franklyn. INDICATION: Trauma due to a fall with large hematoma in the thigh. FINDINGS: The right common femoral artery, deep femoral artery and superficial femoral arteries were imaged. In addition, the popliteal, posterior tibial, peroneal and anterior tibial arteries were imaged. All had multiphasic flow and were patent. There was no evidence of any aneurysm. INTERPRETATION: Unremarkable right lower extremity arterial ultrasound. cc: Beau Gant MD
--- NOTE | 2017-01-11 19:50 | CONSULTATION ---
DATE OF CONSULTATION: 01/11/2017 REFERRING PHYSICIAN: Stephan Garcia MD REASON FOR CONSULTATION: Dysphagia. HISTORY OF PRESENT ILLNESS: Ms. Dai is an 86-year-old female who was admitted to the hospital after a fall. She had a [id number] [place]. She is being treated for that with aspirin and Plavix per the Cardiology Team. She was also noted to have a hematoma over her right upper extremity and right thigh. She has history of chronic reflux disease and history of esophageal dilations x3. The last 1 was done 12 years ago which she believes was done by Dr. Hidalgo. She has complained of trouble swallowing solid foods and breads and she has lost weight per the family sources. She is blending or pureeing her food to help get the calories. She is also taking Boost 2-3 times a day. Patient denies any nausea, vomiting, vomiting blood or passing blood in the stools. Her last colonoscopy was also [address] Hidalgo. PAST MEDICAL HISTORY: Hypertension, hyperlipidemia, coronary artery disease, hypothyroidism, reflux disease, esophageal stricture, breast cancer. PAST SURGICAL HISTORY: Appendectomy, cholecystectomy, hysterectomy, tonsillectomy, esophageal dilations was also done 12 years ago and colonoscopy 12 years ago. Left breast lumpectomy with left heart catheterization in 2012. SOCIAL HISTORY: She is a retired general ledger accountant. She lives alone at this time. She has a very supportive daughter at bedside. No history of alcohol, tobacco or illicit drugs. FAMILY HISTORY: Noncontributory. No history of colon cancer. ALLERGIES: Iodine causing anaphylaxis. MEDICATIONS AT HOME: Norvasc, Plavix, Imdur, Synthroid, Cozaar, Toprol-XL, Ranexa. REVIEW OF SYSTEMS: Denies any current fevers, rigors, or chills. Denies any chest pain at this moment. Denies any shortness of breath. Denies any coughing spells. Denies any genitourinary history. No history of arthritis. She had a fall at home while she was trying to transfer the garbage out of her house. She fell on the right side. She has bruises and hematomas in the right upper extremity and right thigh. She denies history of vomiting blood, passing blood in the stools or black stools. MEDICATIONS IN THE HOSPITAL: Tylenol, aspirin 81, Plavix 75 mg a day, Lipitor, isosorbide mononitrate, levothyroxine, metoprolol, morphine, IV fluids 75 mL/hour, Zofran, Protonix IV once daily, Ranexa 500 mg p.o. b.i.d., Carafate 1 g 4 times daily, Tizanidine 4 mg every 8 hours. She is on pureed diet. PHYSICAL EXAMINATION: Vital Signs: Temperature of 97.8, pulse of 73, respiratory rate 14, blood pressure 133/60, saturating 98% on room air. Body weight of 112 pounds 8 ounces. General Appearance: Thinly built, lying in bed, in no acute distress. HEENT: Mild pallor. No icterus. Pupils equal, react to light. Neck: Supple. Chest: Decreased. Cardiac: Regular rate and rhythm. No murmur. Abdomen: Soft, nontender, nondistended. Bowel sounds. No rebound. No guarding. Extremities: No cyanosis, clubbing. Hematoma noted at the right thigh and the right upper extremity has a bruise. Neurologic: She is alert, awake, oriented x3. LABORATORY AND IMAGING: Her hemoglobin and hematocrit is 9.4 and 28, white count of 4.2, platelet count of 170,000, MCV of 94.9. INR 1.09. PT of 11.5. Sodium of 143, potassium 4.8, chloride 109, bicarb 22, anion gap 12, BUN of 11, creatinine 0.6, glucose of 89, calcium is 8.4. Troponins less than 0.01 at the moment. AST 15, ALT 10, alkaline phos 34, total protein is 6.5, albumin of 3.8, total bilirubin is 0.77. Upper GI barium study, speech, modified barium swallow showed severe cricopharyngeal achalasia causing significant delay in clearance of the pharynx. No aspiration or penetration noted. There are some degenerative osteophytes not causing any contribution to dysphagia. IMPRESSION AND PLAN: 1. Cricopharyngeal achalasia. 2. Coronary artery disease, status post myocardial infarction on aspirin and Plavix. 3. Anemia. 4. Status post fall with hematomas in the right thigh and bruises in the right upper extremities. 5. Reflux disease. RECOMMENDATIONS: 1. Since the patient is on aspirin and Plavix and had recent myocardial infarction, we will continue her on puree diet. She will continue on Boost 1 can 4 times a day. She will continue to puree her food as she is doing. She needs to chew her food very well and drink plenty of fluids. Once she is stabilized from a cardiac standpoint and can come off of aspirin and Plavix for 1 week, then we can schedule for esophagogastroduodenoscopy with dilation electively as an outpatient. At this moment since she is on aspirin and Plavix, the risks of dilation, associated bleeding complications are high. I discussed those with the patient and family at bedside and all questions answered. 2. The patient will be on aspiration precautions. 3. She will avoid eating within 4 hours of lying down. Chew food well. 4. She will continue on gastroesophageal reflux life changes. 5. We will change her to Protonix once daily and continue on Carafate 1 g 6 hours. 6. Further recommendations to follow pending hospital course. cc: MD Stephan Collado MD Ashish K. Basu, MD MTDD
--- NOTE | 2017-01-12 09:19 | Extremity Venous Study ---
PROCEDURE NAME: Venous U/S Right Leg - 01/07/2017 RIGHT LOWER EXTREMITY VENOUS DUPLEX STUDY: REFERRING PHYSICIAN: Dr. Alexandra. READING PHYSICIAN: Beau Gant MD. NICKEL PLATER: Franklyn. INDICATION: Right lower extremity trauma and hematoma. FINDINGS: The deep and superficial veins of the right lower extremity were imaged throughout their course. All are compressible with forward flow. No thrombus is appreciated. INTERPRETATION: No evidence of deep or superficial venous thrombosis of the right lower extremity. cc: Beau Gant MD
--- NOTE | 2017-01-12 10:21 | DISCHARGE SUMMARY ---
ADMISSION DATE: 01/07/2017 DISCHARGE DATE: 01/11/2017 PERTINENT PROCEDURES: 1. Femur x-ray is negative. Humerus x-ray is negative. Arterial Dopplers of the right lower extremity were unremarkable. 2. Echocardiogram showed an EF of 55% with severe hypokinesis. Akinesis of the apical septum of left ventricle suggested. 3. Modified barium swallow showed severe cricopharyngeal achalasia causing significant delay in clearance of the pharynx. CONSULTATIONS: Dr. Elaine cardiology. DISCHARGE DIAGNOSES: 1. Non STEMI. Per patient and the family, they just wish to be treated medically with no intervention. 2. Fall with right-sided thigh hematoma, stable. 3. Mild dehydration, resolved. 4. Borderline hypotensive bradycardia with a decrease in metoprolol as well as losartan, improved. 5. 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 Per family member, she has had this problem for a very long time. She has had 2 attempts to stretch her esophagus. That had not been successful so they recommend her to taking only a liquid diet. She can follow up with GI on an outpatient basis. 6. Epigastric discomfort related to esophageal stenosis with gastritis and gastroesophageal reflux disease. 7. Congestive heart failure with an EF of 55 and wall motion abnormalities secondary to underlying coronary artery disease. HOSPITAL COURSE: Ms. Dai is an 86-year-old, female who presented to the ED with complaints of right arm pain, right lower extremity pain and chest pain after a fall at home from standing. Patient was walking outside pulling her large empty garbage can. She fell over on her right side. There was no loss of consciousness, but she did have right upper thigh pain and swelling. Upon evaluation in the ED, humerus x-ray was performed and showed no injury as well as a femur x-ray that did not show any injury. Patient also complained of some chest pain which was substernal in the epigastric region. She was found have an elevated troponin. The patient was admitted for a NonSTEMI in the right lower extremity, hematoma, and a consult for Cardiology. She also underwent an echocardiogram that showed an EF of 55% with severe hypokinesis to akinesis of the apical septum. She underwent significant medication adjustments with Dr. Elaine, a decrease of her ARB and adjustment in her antianginal, as well as an addition to Plavix. The patient and family have opted for medical therapy at this time without any intervention. They also escalated her Ranexa. Patient did have an episode of bradycardia as well as some hypotension. She once again had a medication adjustment and a decrease in her metoprolol as well as her losartan, and given her tendency to choke, she did undergo a modified barium swallow. It did show severe cricopharyngeal achalasia causing significant delay in clearance of the pharynx. The family is aware. They have attempted to have a dilatation done on the patient x 2 that were unsuccessful. She was advised at that time to be on a liquid diet. There was no plan to do any invasive procedures while in the hospital. Ms. Dai clinically has improved. She did have 1 episode of while working with physical therapy where she did have some chest discomfort. She became pale and jittery so physical therapy was stopped. The patient returned to normal. Her vital signs were stable. She was watched for 1 more day. The patient is being discharged back home today with family. They did talk with [employer] about possibly wanting home health; however, they have decided against that. The patient is being discharged home with family. VITAL SIGNS AT THE TIME OF HER DISCHARGE: Temperature is 97.8 degrees, heart rate 72, respirations 14, blood pressure 133/60, O2 is 99% on room air. DISCHARGE DIET: Pureed. DISCHARGE MEDICATIONS: 1. Aspirin 81 mg p.o. daily. 2. Lipitor 40 mg p.o. daily. 3. Plavix 75 mg p.o. at bedtime. 4. #30 mg p.o. daily. 5. Synthroid 25 mcg p.o. daily. 6. Toprol-XL 25 mg p.o. b.i.d. 7. Protonix 40 mg p.o. daily. 8. Ranexa 500 mg p.o. b.i.d. 9. Carafate 1 g p.o. 4 times a day. FOLLOWUP: The patient is being discharged home. She can follow up with Cardiology as indicated, as well as her GI specialist. She will need to follow their diet as instructed. The patient can return to the ED for any worsening of symptoms. DISCHARGE TIME: Greater than 30 minutes. Dictated by GRACIELA Zarate for Stephan Garcia MD cc: MD NICK Granda
== END 2017-01-11 16:41 | disposition home or self-care (01) ==
LOC: ED 15:50 → SUATTDRO 21:09 → 3S 21:09 → 4N 01-11 10:20
PROVIDERS: ATTEND Internal Medicine